=== PATIENT | female | born 1935 | race Caucasian/White ===

== ENCOUNTER 2017-10-28 09:08 | Outpatient (CLI) | payer MEDICARE ==
--- NOTE | 2017-10-28 11:20 | MRI ---
BRAIN MRI WITHOUT CONTRAST: History: Memory impairment. Comparison: None. Technique: Brain MRI is performed without Gadolinium administration. Multisequential, multiplanar charlotte ging performed. FINDINGS: No hemorrhage on the axial gradient echo sequence. Calvarium has a normal marrow signal intensity. Midline brain and parenchymal structures are all unre markable. No mass, mass effect or midline shift. Brain volume is age appropriate. Cortical kay white matter differentiation is preserved. Ventricles and sulci are patent and symmetric. Scattered T2 and FLAIR white matter hyperintensity due to chronic small vessel ischemic change. Ventral arterial flow voids are maintained. Absence of restricted diffusion. Adequate aeration of the sinuses and mastoid air cells. IMPRESSION: 1. Age appropriate atrophy. 2. Chronic small vessel ischemic change white matter. POS: OFF
--- NOTE | 2017-11-17 14:25 | EEG ---
Referring Physician: DR. FREDERICK ANDERSON EEG # [id number] PROCEDURE: Outpatient electroencephalogram NAME OF PATIENT: Steph Valle DATE EEG DONE: 10/28/2017 INDICATION: Memory impairment. EEG CLASSIFICATION: Normal awake and drowsy, abundant beta activity. REPORT: This is a 22-channel digital EEG recording utilizing 10-20 international electrode placement system. During wakefulness, the background activity consists of abundant low amplitude beta activity. It is symmetric and reactive. There is also myogenic activity noted representing frontalis and temporalis muscles bilaterally. There is occasionally low amplitude 8 Hz activity noted. DROWSINESS AND SLEEP: Subject is able to attain some brief periods of drowsiness with diffuse theta activity. There is no clear sleep recorded during this EEG. There is no asymmetry or paroxysmal activity noted. INDUCTION: HYPERVENTILATION: Not performed. PHOTIC STIMULATION: No photic drive seen. EK per minute. IMPRESSION: This is a normal awake and drowsy EEG. There is abundant beta activity noted, likely medication effect. However, there is no clear epileptiform activity or focal abnormality noted. Clinical correlation recommended. Truck Repair Supervisor: BECKIE Advertising Strategist: [email or web address] [email or web address]
== END 2017-10-28 09:09 | disposition home or self-care (01) ==
LOC: MRI 09:08
PROVIDERS: ATTEND Student in an Organized Health Care Education/Training Program
DX: R41.3 Other amnesia (principal); I67.82 Cerebral ischemia
CPT/HCPCS: 70551; 95816

== ENCOUNTER 2017-11-12 09:37 | Outpatient (CLI) | payer MEDICARE | END 2017-11-12 09:38 | disposition home or self-care (01) | LOC: BICMAMMO 09:37 | PROVIDERS: ATTEND Internal Medicine | DX: Z12.31 Encounter for screening mammogram for malignant neoplasm of breast (principal) | CPT/HCPCS: 77063; 77067 ==

== ENCOUNTER 2020-05-30 11:57 | Outpatient (CLI) | payer MEDICARE ==
--- NOTE | 2020-05-30 13:43 | RAD ---
PA AND LATERAL CHEST: 05/30/20 HISTORY: Dyspnea. COMPARISON: 04/08/18 exam. Heart size and mediastinum are within normal limits. Lungs show some more chronic appearing change wi thout focal infiltrative process. IMPRESSION: Chronic appearing lung change. POS: BRADY
== END 2020-05-30 11:58 | disposition home or self-care (01) ==
LOC: BICRAD 11:57
PROVIDERS: ATTEND Internal Medicine Critical Care Medicine
DX: R06.00 Dyspnea, unspecified (principal)
CPT/HCPCS: 71046

== ENCOUNTER 2022-11-14 20:41 | Emergency (ER) | payer MEDICARE, OTHER ==
[2022-11-14 21:40] LABS: #Eosinphils 0.1 thou/uL (0.0-0.7); #Lymphocytes 1.7 thou/uL (1.20-3.40); #Monocytes 0.4 thou/uL (0.11-0.59); #Neutrophils 3.2 thou/uL (1.40-6.50); %Basophils 0.2 % (0.0-1.0); %Eosinophils 2.2 % (0.0-10.0); %Lymphocytes 31.5 % (21.0-51.0); %Monocytes 7.9 % (0.0-10.0); %Neutrophils 58.3 % (42.0-75.0); Hemoglobin 12.5 g/dL (12.0-16.0); Mean Corpuscular HGB CONC 33.4 g/dL (32.0-36.0); Mean Corpuscular Hemoglobin 31.6 pg (27.0-31.0); Mean Corpuscular Volume 94.4 fl (78.0-98.0); Mean Platelet Volume 7.7 fL (7.4-10.4); Platelet Count 231 10x3/uL (130-400); RBC Distribution Width 11.9 % (11.5-14.5); Red Blood Cell (RBC) Count 3.95 mill/uL (4.20-5.40); White Blood Cell (WBC) Count 5.5 10x3/uL (4.8-10.8)
[2022-11-14 22:05] LABS: ALT (SGPT) 15 U/L (8-55); AST (SGOT) 19 U/L (5-34); Albumin 3.9 g/dL (3.4-4.8); Alkaline Phosphatase 113 U/L (40-110); Anion Gap 18 mmol/L (10-20); BUN (Urea Nitrogen) 19 mg/dL (9.8-20.1); Bilirubin, Total 0.5 mg/dL (0.2-1.2); Calc. Creatinine Clearance 0 mL/min (70-130); Calcium 8.9 mg/dL (7.8-10.44); Carbon Dioxide 21 mmol/L (23-31); Chloride 106 mmol/L (98-107); Estimated GFR 68; Globulin 2.8 g/dL (2.4-3.5); Glucose 150 mg/dL (83-110); Magnesium 1.7 mg/dL (1.6-2.6); Protein, Total 6.7 g/dL (5.8-8.1); Sodium 141 mmol/L (136-145)
[2022-11-14 23:02] LABS: Bilirubin Negative (Negative); Blood, Urine Negative (Negative); Clarity Clear (Clear); Glucose, Urine (Dipstick) Normal (Negative); Ketone, Urine Trace mg/dL (Negative); Leukocyte Negative Leu/uL (Negative); Nitrite Negative (Negative); Protein, Urine (Dipstick) Negative (Neg-Trace); Specific Gravity, Urine 1.009 (1.002-1.036); Urobilinogen Normal mg/dL (Less than 2)
== END 2022-11-15 00:36 | disposition home or self-care (01) ==
LOC: ERS 20:41
DX: E86.0 Dehydration (principal); R42 Dizziness and giddiness
CPT/HCPCS: 70450; 80053; 81003; 83735; 84484; 85025; 96360; 96361

== ENCOUNTER 2023-03-06 13:24 | Outpatient (CLI) | payer MEDICARE | END 2023-03-06 13:25 | disposition home or self-care (01) | LOC: BICMRI 13:24 | PROVIDERS: ATTEND Family Medicine | DX: M48.062 Spinal stenosis, lumbar region with neurogenic claudication (principal); M47.817 Spondylosis without myelopathy or radiculopathy, lumbosacral region; M47.816 Spondylosis without myelopathy or radiculopathy, lumbar region; M43.16 Spondylolisthesis, lumbar region | CPT/HCPCS: 72148 ==

== ENCOUNTER 2023-03-13 08:15 | Outpatient (CLI) | payer MEDICARE | END 2023-03-13 08:16 | disposition home or self-care (01) | LOC: NM 08:15 | PROVIDERS: ATTEND Family Medicine | DX: R25.1 Tremor, unspecified (principal) | CPT/HCPCS: 78803; A9584 ×2 ==

== ENCOUNTER 2023-04-16 12:44 | Outpatient (CLI) | payer MEDICARE ==
[2023-04-16 13:53] LABS: Hemoglobin 13.5 g/dL (12.0-15.5); Mean Corpuscular HGB CONC 33.1 g/dL (32.0-36.0); Mean Corpuscular Hemoglobin 30.1 pg (27.0-33.0); Mean Corpuscular Volume 91.1 fl (81.6-98.3); Mean Platelet Volume 9.9 fl (7.4-10.4); Platelet Count 196 10x3/uL (150-450); RBC Distribution Width 12.7 % (11.5-14.5); Red Blood Cell (RBC) Count 4.48 10x6/uL (3.90-5.03); White Blood Cell (WBC) Count 5.4 10x3/uL (3.5-10.5)
[2023-04-16 14:12] LABS: Anion Gap 15 mmol/L (10-20); BUN (Urea Nitrogen) 16 mg/dL (9.8-20.1); Calc. Creatinine Clearance 0 mL/min (70-130); Calcium 9.2 mg/dL (7.8-10.44); Carbon Dioxide 25 mmol/L (23-31); Chloride 105 mmol/L (98-107); Estimated GFR 56; Glucose 204 mg/dL (83-110); Potassium 4.4 mmol/L (3.5-5.1); Sodium 141 mmol/L (136-145)
== END 2023-04-16 12:45 | disposition home or self-care (01) ==
LOC: LABBT 12:44
PROVIDERS: ATTEND Neurological Surgery
DX: Z01.818 Encounter for other preprocedural examination (principal); M48.061 Spinal stenosis, lumbar region without neurogenic claudication
CPT/HCPCS: 80048; 85027; 93005; 93010

== ENCOUNTER 2023-04-21 08:16 | Observation (INO) | payer MEDICARE ==
[2023-04-16 13:24] VITALS: BMI 27.3
[2023-04-21] MEDS ORDERED: Vancomycin 1 GM VIAL ONE (11:58)
[2023-04-21] MEDS ORDERED: Fentanyl 250 MCG/5 ML VIAL ONE (12:03)
[2023-04-21] MEDS ORDERED: SUGAMMADEX SODIUM 200 MG/2 ML VIAL ONE (12:03)
[2023-04-21] MEDS ORDERED: CEFAZOLIN 2 GM VIAL ONE (12:15)
[2023-04-21] MEDS ORDERED: Sodium Chloride 0.9% 100 ML ONE (12:15)
[2023-04-21] MEDS ORDERED: Ondansetron PF 4 MG/2 ML Vial ONE (12:34)
[2023-04-21] MEDS ORDERED: Rocuronium Bromide 10 MG/ML (10ML VIAL) ONE (12:34)
[2023-04-21] MEDS ORDERED: Esmolol 100 MG/10 ML VIAL ONE (12:34)
[2023-04-21] MEDS ORDERED: Dexamethasone 20 MG/5 ML VIAL ONE (12:34)
[2023-04-21] MEDS ORDERED: PROPOFOL 200 MG/20 ML VIAL ONE (12:34)
[2023-04-21] MEDS ORDERED: Lidocaine 1% PF 5 ML VIAL ONE (12:34)
[2023-04-21] MEDS ORDERED: Promethazine HCl 25 MG/ML VIAL IM PRN (13:35)
[2023-04-21] MEDS ORDERED: Ondansetron HCl/PF 4 MG/2 ML Vial IVP PRN (13:35)
[2023-04-21] MEDS ORDERED: Ondansetron PF 4 MG/2 ML Vial IVP PRN (13:41)
[2023-04-21] MEDS ORDERED: Acetaminophen 325 MG TAB PO PRN (13:41)
[2023-04-21] MEDS ORDERED: diphenhydrAMINE 50 MG/ML VIAL IVP PRN (13:41)
[2023-04-21] MEDS ORDERED: Mag-Al 1200 mg/1200 mg/30 ML UDCUP PO PRN (13:41)
[2023-04-21] MEDS ORDERED: Milk Of Magnesia 30 ML UDCUP PO PRN (13:41)
[2023-04-21] MEDS ORDERED: Acetaminophen/Codeine 30-300mg Tablet PO PRN ×2 (13:41)
[2023-04-21] MEDS ORDERED: Promethazine 25 MG TAB PO PRN (13:41)
[2023-04-21] MEDS ORDERED: Cyclobenzaprine 10 MG TAB PO PRN (13:41)
[2023-04-21] MEDS ORDERED: Morphine 2 MG/ML VIAL SLOW IVP PRN (13:41)
[2023-04-21] MEDS ORDERED: fentaNYL 50 mcg/mL 1 mL Vial ONE ×2 (14:05→14:36)
[2023-04-21] MEDS ORDERED: Labetalol HCl 100 MG/20 ML VIAL ONE (14:51)
[2023-04-21] MEDS ORDERED: Dextrose 50% Abboject 50 ML SYRINGE SLOW IVP PRN (17:20)
[2023-04-21] MEDS ORDERED: Dextrose 5% in Water 1,000 ML IV PRN (17:20)
[2023-04-21] MEDS ORDERED: Glucagon 1 MG/ML KIT IM PRN (17:20)
[2023-04-21] MEDS ORDERED: Insulin Regular 300 UNITS/3 ML VIAL SC PRN ×2 (17:20)
[2023-04-21] MEDS: Sodium Chloride 0.9% 1,000 ML IV SCH (18:48)
[2023-04-21] MEDS: CEFAZOLIN 2 GM in Sodium Chloride 0.9% 100 ML IVPB SCH (19:09)
[2023-04-21] MEDS: Gabapentin 100 MG CAP PO SCH (19:09)
[2023-04-21] MEDS: traMADol HCl 50 MG TAB PO PRN (19:46)
[2023-04-21] MEDS ORDERED: Donepezil HCl 5 MG TAB PO SCH (21:00)
[2023-04-22] MEDS: CEFAZOLIN 2 GM in Sodium Chloride 0.9% 100 ML IVPB SCH ×2 (03:21→13:37)
[2023-04-22] MEDS: traMADol HCl 50 MG TAB PO PRN (03:24)
[2023-04-22] MEDS: Sodium Chloride 0.9% 1,000 ML IV SCH (03:53)
[2023-04-22] MEDS ORDERED: Levothyroxine Sodium 50 MCG TAB PO SCH (06:00)
[2023-04-22] MEDS ORDERED: rOPINIRole HCl 0.25 MG TAB PO SCH (09:00)
[2023-04-22] MEDS ORDERED: Pioglitazone HCl 15 MG TAB PO SCH (09:00)
[2023-04-22] MEDS ORDERED: Bupropion 100 MG SR TAB PO SCH (09:00)
[2023-04-22] MEDS: Gabapentin 100 MG CAP PO SCH (09:42)
[2023-04-22 12:10] VITALS: TEMP 98.1
[2023-04-22 16:19] VITALS: BP 127/69
== END 2023-04-22 17:50 | disposition home or self-care (01) ==
LOC: SDC 08:16 → SURG A 13:46
PROVIDERS: ADMIT Neurological Surgery; ATTEND Neurological Surgery
PROC: 01NB0ZZ Release Lumbar Nerve, Open Approach (ICD-10-PCS; principal; 2023-04-21)
DX: M48.062 Spinal stenosis, lumbar region with neurogenic claudication (principal); E11.9 Type 2 diabetes mellitus without complications; K21.9 Gastro-esophageal reflux disease without esophagitis; J45.909 Unspecified asthma, uncomplicated; E03.9 Hypothyroidism, unspecified; F03.90 Unspecified dementia, unspecified severity, without behavioral disturbance, psychotic disturbance, mood disturbance, and anxiety; E78.5 Hyperlipidemia, unspecified; Z79.890 Hormone replacement therapy; Z79.4 Long term (current) use of insulin; Z79.84 Long term (current) use of oral hypoglycemic drugs; Z79.899 Other long term (current) drug therapy; Z90.49 Acquired absence of other specified parts of digestive tract; Z90.89 Acquired absence of other organs; Z90.710 Acquired absence of both cervix and uterus
CPT/HCPCS: 63047; 63048; 82962 ×2; 97110; 97116; C1713; J3010; 36416; J1100; J1815; J2272; J2405; J2704; J3370; J3490

== ENCOUNTER 2023-11-17 01:18 | Inpatient (IN) | payer MEDICARE ==
[2023-11-17] MEDS ORDERED: niCARdipine 25 MG/10 ML SDV ONE (01:32)
[2023-11-17 02:02] LABS: #Eosinphils 0.2 thou/uL (0.0-0.7); #Monocytes 0.5 thou/uL (0.11-0.59); #Neutrophils 6.3 thou/uL (1.40-6.50); %Basophils 0.3 % (0.0-1.0); %Eosinophils 2.2 % (0.0-10.0); %Lymphocytes 22.7 % (21.0-51.0); %Monocytes 5.7 % (0.0-10.0); %Neutrophils 68.8 % (42.0-75.0); Hematocrit 38.9 % (36.0-47.0); Hemoglobin 12.9 g/dL (12.0-16.0); Mean Corpuscular HGB CONC 33.2 g/dL (32.0-36.0); Mean Corpuscular Hemoglobin 29.7 pg (27.0-31.0); Mean Corpuscular Volume 89.4 fl (78.0-98.0); Mean Platelet Volume 10.5 fL (7.4-10.4); Platelet Count 171 10x3/uL (130-400); RBC Distribution Width 12.4 % (11.5-14.5); Red Blood Cell (RBC) Count 4.35 mill/uL (4.20-5.40); White Blood Cell (WBC) Count 9.1 10x3/uL (4.8-10.8)
[2023-11-17 02:15] LABS: ALT (SGPT) 10 U/L (8-55); AST (SGOT) 16 U/L (5-34); Alkaline Phosphatase 100 U/L (40-110); Anion Gap 15 mmol/L (10-20); BUN (Urea Nitrogen) 16 mg/dL (9.8-20.1); Bilirubin, Total 0.4 mg/dL (0.2-1.2); Calc. Creatinine Clearance 0 mL/min (70-130); Calcium 8.8 mg/dL (7.8-10.44); Carbon Dioxide 24 mmol/L (23-31); Chloride 105 mmol/L (98-107); Estimated GFR 51; Globulin 2.3 g/dL (2.4-3.5); Glucose 285 mg/dL (83-110); Potassium 4.4 mmol/L (3.5-5.1); Protein, Total 6.3 g/dL (5.8-8.1); Sodium 140 mmol/L (136-145)
[2023-11-17 02:20] LABS: PTT 25.8 sec (22.9-36.1); Prothrombin Time 13.1 sec (12.0-14.7)
[2023-11-17] MEDS ORDERED: hydrALAZINE 20 MG/ML VIAL SLOW IVP PRN (02:20)
[2023-11-17] MEDS ORDERED: manNITOL 20% 0 ML ONE (02:38)
[2023-11-17 02:39] LABS: Troponin I Less than 0.010 ng/mL (< 0.028)
[2023-11-17] MEDS ORDERED: Mannitol 12.5 GM/50 ML ONE ×2 (02:51→02:53)
[2023-11-17] MEDS ORDERED: Acetaminophen 650 MG Suppository PR PRN (03:08)
[2023-11-17] MEDS ORDERED: Ondansetron ODT 4 MG TAB PO PRN (03:08)
[2023-11-17] MEDS ORDERED: fentaNYL 50 mcg/mL 1 mL Vial ONE (03:26)
[2023-11-17 04:13] LABS: #Monocytes 0.6 thou/uL (0.11-0.59); #Neutrophils 10.5 thou/uL (1.40-6.50); %Basophils 0.2 % (0.0-1.0); %Eosinophils 0.3 % (0.0-10.0); %Lymphocytes 8.6 % (21.0-51.0); %Monocytes 4.7 % (0.0-10.0); %Neutrophils 85.8 % (42.0-75.0); Hematocrit 38.6 % (36.0-47.0); Hemoglobin 12.9 g/dL (12.0-16.0); Mean Corpuscular HGB CONC 33.4 g/dL (32.0-36.0); Mean Corpuscular Hemoglobin 29.8 pg (27.0-31.0); Mean Corpuscular Volume 89.1 fl (78.0-98.0); Mean Platelet Volume 10.4 fL (7.4-10.4); Platelet Count 160 10x3/uL (130-400); RBC Distribution Width 12.5 % (11.5-14.5); Red Blood Cell (RBC) Count 4.33 mill/uL (4.20-5.40); White Blood Cell (WBC) Count 12.3 10x3/uL (4.8-10.8)
[2023-11-17 04:40] LABS: Hemoglobin A1c 7.9 % (4.0-6.0)
[2023-11-17 04:48] LABS: Anion Gap 19 mmol/L (10-20); BUN (Urea Nitrogen) 15 mg/dL (9.8-20.1); Calc. Creatinine Clearance 0 mL/min (70-130); Calcium 8.5 mg/dL (7.8-10.44); Carbon Dioxide 18 mmol/L (23-31); Chloride 102 mmol/L (98-107); Estimated GFR 62; Glucose 277 mg/dL (83-110); Potassium 4.6 mmol/L (3.5-5.1); Sodium 134 mmol/L (136-145)
[2023-11-17 05:23] LABS: Bacteria/HPF None Seen HPF (None Seen); Bilirubin Negative (Negative); Blood, Urine Negative (Negative); CAUTI Indications for Culture Alt mental st,lethar; Clarity Clear (Clear); Glucose, Urine (Dipstick) 500 mg/dL (Negative); Ketone, Urine Trace mg/dL (Negative); Leukocyte Negative Leu/uL (Negative); Nitrite Negative (Negative); Protein, Urine (Dipstick) Negative (Neg-Trace); RBC/HPF 0-3 HPF (0-3); Specific Gravity, Urine 1.022 (1.002-1.036); Squamous Epithelial None Seen HPF (0-3); Urine Culture Reflex No No; Urobilinogen Normal mg/dL (Less than 2); WBC/HPF 0-3 HPF (0-3); pH, Urine 5.5 (5.0-9.0)
[2023-11-17] MEDS: niCARdipine 25 MG in Sodium Chloride 0.9% 250 ML 250 ML IVPB SCH (06:24)
[2023-11-17] MEDS ORDERED: Dextrose 5% in Water 1,000 ML IV PRN (06:31)
[2023-11-17] MEDS ORDERED: Glucagon 1 MG/ML KIT IM PRN (06:31)
[2023-11-17] MEDS ORDERED: Dextrose 50% Abboject 50 ML SYRINGE SLOW IVP PRN (06:31)
[2023-11-17] MEDS: Sodium Chloride 0.9% 1,000 ML IV SCH (06:41)
[2023-11-17 06:49] VITALS: BMI 28.6
[2023-11-17 08:34] LABS: Anion Gap 16 mmol/L (10-20); BUN (Urea Nitrogen) 16 mg/dL (9.8-20.1); Calc. Creatinine Clearance 50 mL/min (70-130); Calcium 8.6 mg/dL (7.8-10.44); Carbon Dioxide 21 mmol/L (23-31); Chloride 104 mmol/L (98-107); Estimated GFR 54; Glucose 270 mg/dL (83-110); Potassium 4.7 mmol/L (3.5-5.1); Sodium 136 mmol/L (136-145)
[2023-11-17] MEDS: Pantoprazole 40 MG VIAL IVP SCH (10:47)
[2023-11-17] MEDS: HumaLOG 300 UNITS/3 ML VIAL SC PRN (11:09)
[2023-11-17] MEDS: Morphine 4 MG/ML VIAL SLOW IVP PRN (12:39)
[2023-11-17] MEDS: Ondansetron PF 4 MG/2 ML Vial IVP PRN (12:46)
[2023-11-17] MEDS: Acetaminophen 325 MG TAB PO PRN (16:08)
[2023-11-17] MEDS: Labetalol HCl 100 MG/20 ML VIAL SLOW IVP PRN (16:08)
[2023-11-17] MEDS: Morphine 2 MG/ML VIAL SLOW IVP PRN (20:27)
[2023-11-17] MEDS: rOPINIRole HCl 0.25 MG TAB PO SCH (22:13)
[2023-11-17] MEDS: Gabapentin 100 MG CAP PO SCH (22:13)
[2023-11-17] MEDS: Donepezil HCl 5 MG TAB PO SCH (22:13)
[2023-11-18 05:01] LABS: #Monocytes 0.6 thou/uL (0.11-0.59); %Basophils 0.4 % (0.0-1.0); %Eosinophils 0.2 % (0.0-10.0); %Lymphocytes 10.7 % (21.0-51.0); %Monocytes 5.6 % (0.0-10.0); %Neutrophils 82.5 % (42.0-75.0); Hematocrit 38.5 % (36.0-47.0); Hemoglobin 12.7 g/dL (12.0-16.0); Mean Corpuscular Volume 90.8 fl (78.0-98.0); Mean Platelet Volume 10.3 fL (7.4-10.4); Platelet Count 167 10x3/uL (130-400); RBC Distribution Width 12.6 % (11.5-14.5); Red Blood Cell (RBC) Count 4.24 mill/uL (4.20-5.40); White Blood Cell (WBC) Count 10.9 10x3/uL (4.8-10.8)
[2023-11-18] MEDS: Levothyroxine Sodium 50 MCG TAB PO SCH (06:17)
[2023-11-18] MEDS: Memantine 10 MG TAB PO SCH (07:42)
[2023-11-18 09:34] LABS: Anion Gap 20 mmol/L (10-20); BUN (Urea Nitrogen) 13 mg/dL (9.8-20.1); Calc. Creatinine Clearance 57 mL/min (70-130); Calcium 8.3 mg/dL (7.8-10.44); Carbon Dioxide 16 mmol/L (23-31); Chloride 108 mmol/L (98-107); Estimated GFR 64; Glucose 275 mg/dL (83-110); Potassium 4.3 mmol/L (3.5-5.1); Sodium 140 mmol/L (136-145)
[2023-11-18] MEDS: Sodium Bicarbonate Tab 325 MG TAB PO SCH (15:38)
[2023-11-18 16:46] LABS: Actual Bicarbonate (HCO3a) 21.4 mEq/L (22-28); Base Excess (BEa) -2.5 mEq/L (-2.0 to +3.0); CO2 Tension 34.4 mmHg (35.0-45.0); Calcium, Ionized (arterial) 1.11 mmol/L (1.12-1.30); Carboxyhemoglobin (COHb) 0.7 gm% (0.0-3.0); Hematocrit-ABG 37 % (36.0-47.0); Hemoglobin (Hb) 12.7 g/dL (12.0-16.0); Potassium - ABG Lab 4.19 mmol/L (3.70-5.30); pH, Arterial 7.412 (7.35-7.45)
[2023-11-18 16:48] LABS: O2 Tension (PaO2), arterial 58.4 mmHg (> 60.0); Puncture Site RRA
[2023-11-18] MEDS: Morphine 2 MG/ML VIAL SLOW IVP PRN (21:04)
[2023-11-19] MEDS: Furosemide 40 MG (4 mL) VIAL SLOW IVP SCH ×2 (00:50→09:04)
[2023-11-19 01:22] LABS: Actual Bicarbonate (HCO3a) 21.5 mEq/L (22-28); Base Excess (BEa) -2.7 mEq/L (-2.0 to +3.0); CO2 Tension 35.5 mmHg (35.0-45.0); Calcium, Ionized (arterial) 1.12 mmol/L (1.12-1.30); Carboxyhemoglobin (COHb) 0.5 gm% (0.0-3.0); Hematocrit-ABG 38 % (36.0-47.0); Hemoglobin (Hb) 12.9 g/dL (12.0-16.0); O2 Tension (PaO2), arterial 64.9 mmHg (> 60.0); Potassium - ABG Lab 4.04 mmol/L (3.70-5.30)
[2023-11-19] MEDS: Scopolamine 1 mg/72 hour Patch TD SCH (01:23)
[2023-11-19 01:28] LABS: ALV-art Gradient 247.225 mmHg (0-20); Puncture Site LRA
[2023-11-19 05:01] LABS: #Monocytes 1.1 thou/uL (0.11-0.59); #Neutrophils 12.9 thou/uL (1.40-6.50); %Basophils 0.2 % (0.0-1.0); %Monocytes 7.1 % (0.0-10.0); Hematocrit 34.7 % (36.0-47.0); Hemoglobin 11.7 g/dL (12.0-16.0); Mean Corpuscular HGB CONC 33.7 g/dL (32.0-36.0); Mean Corpuscular Hemoglobin 30.5 pg (27.0-31.0); Mean Corpuscular Volume 90.4 fl (78.0-98.0); Mean Platelet Volume 10.8 fL (7.4-10.4); Platelet Count 190 10x3/uL (130-400); RBC Distribution Width 12.9 % (11.5-14.5); Red Blood Cell (RBC) Count 3.84 mill/uL (4.20-5.40); White Blood Cell (WBC) Count 15.2 10x3/uL (4.8-10.8)
[2023-11-19 05:21] LABS: Anion Gap 16 mmol/L (10-20); BUN (Urea Nitrogen) 19 mg/dL (9.8-20.1); Calc. Creatinine Clearance 52 mL/min (70-130); Calcium 8.3 mg/dL (7.8-10.44); Carbon Dioxide 19 mmol/L (23-31); Chloride 107 mmol/L (98-107); Estimated GFR 58; Glucose 277 mg/dL (83-110); Sodium 138 mmol/L (136-145)
[2023-11-19] MEDS: Ampicillin/Sulbactam 3 GM in Sodium Chloride 0.9% 100 ML IVPB SCH (09:02)
[2023-11-19 10:57] VITALS: BP 146/79
[2023-11-19 19:45] VITALS: TEMP 98.7
== END 2023-11-19 16:35 | disposition hospice, inpatient (51) | DRG 64 ==
LOC: ERS 01:18 → ERHOLD 03:27 → CCU 05:50
PROVIDERS: ADMIT Student in an Organized Health Care Education/Training Program; ATTEND Family Medicine
DX: I61.9 Nontraumatic intracerebral hemorrhage, unspecified (principal); G93.41 Metabolic encephalopathy; G93.6 Cerebral edema; G81.94 Hemiplegia, unspecified affecting left nondominant side; I16.1 Hypertensive emergency; E87.1 Hypo-osmolality and hyponatremia; E87.20 Acidosis, unspecified; Z66 Do not resuscitate; R29.714 NIHSS score 14; R41.0 Disorientation, unspecified; I69.191 Dysphagia following nontraumatic intracerebral hemorrhage; F03.90 Unspecified dementia, unspecified severity, without behavioral disturbance, psychotic disturbance, mood disturbance, and anxiety; E11.65 Type 2 diabetes mellitus with hyperglycemia; Z79.899 Other long term (current) drug therapy; Z79.891 Long term (current) use of opiate analgesic; Z98.49 Cataract extraction status, unspecified eye; Z90.49 Acquired absence of other specified parts of digestive tract
CPT/HCPCS: 36415; 36416; 36600; 51702; 70450; 71045; 80048; 80053; 81001; 82805; 83036; 84484; 85025; 85610; 85730; 86850; 86900; 86901; 93005; 93306; 96365; 96366; 96375; C9113; J0295; J1815; J1940; J2150; J2270; J2272; J2405; J3010; J3490; J7050; J7799

== ENCOUNTER 2023-11-19 16:43 | Inpatient (IN) | payer OTHER ==
[2023-11-19] MEDS ORDERED: Bisacodyl 10 MG SUPP PR PRN (17:08)
[2023-11-19] MEDS ORDERED: Scopolamine 1 mg/72 hour Patch TOP PRN (17:15)
[2023-11-19] MEDS ORDERED: Ondansetron PF 4 MG/2 ML Vial IVP PRN (17:15)
[2023-11-19] MEDS ORDERED: Haloperidol Lactate 5 MG/ML VIAL SLOW IVP PRN (17:15)
[2023-11-19] MEDS: Scopolamine 1 mg/72 hour Patch TOP SCH (21:56)
[2023-11-19] MEDS: Morphine 2 MG/ML VIAL SLOW IVP PRN (23:24)
[2023-11-20] MEDS: Lorazepam 2 MG/ML VIAL SLOW IVP PRN (03:43)
[2023-11-20] MEDS: Furosemide 20 MG (2 mL) VIAL SLOW IVP SCH (09:31)
[2023-11-20] MEDS: GLYCOPYRROLATE/PF 0.2 MG/ML VIAL SLOW IVP PRN (15:24)
[2023-11-20] MEDS: Atropine Sulfate 1% Ophth Soln 5 ml Bottle SL PRN (20:58)
[2023-11-21] MEDS: Lorazepam 2 MG/ML VIAL SLOW IVP PRN (16:49)
[2023-11-21] MEDS: Acetaminophen 650 MG Suppository PR PRN (16:50)
[2023-11-21 20:29] VITALS: BP 161/83; TEMP 103.2
== END 2023-11-22 00:41 | disposition expired | DRG 951 ==
LOC: CCU 16:44 → MSONC 22:36
PROVIDERS: ADMIT Family Medicine; ATTEND Family Medicine
DX: Z51.5 Encounter for palliative care (principal); G93.41 Metabolic encephalopathy; I61.8 Other nontraumatic intracerebral hemorrhage; J96.01 Acute respiratory failure with hypoxia; F03.90 Unspecified dementia, unspecified severity, without behavioral disturbance, psychotic disturbance, mood disturbance, and anxiety; R13.19 Other dysphagia; I16.0 Hypertensive urgency; Z79.899 Other long term (current) drug therapy; Z98.890 Other specified postprocedural states; Z90.49 Acquired absence of other specified parts of digestive tract
CPT/HCPCS: J1940; J2060; J2272; J3490